=== PATIENT | female | born 1990 | race Caucasian/White ===

== ENCOUNTER 2018-01-08 11:03 | Emergency (ER) | payer MEDICAID, OTHER ==
[2018-01-08 11:57] VITALS: BP 91/72
--- NOTE | 2018-01-08 12:36 | UC ---
Throat Pain/Nasal Zbigniew HPI - HPI Summary HPI Summary: 27-year-old woman who comes in today with a complaint of runny nose sore throat cough and chest congestion. His been going on for several days. Patient is a smoker. This morning she had a hard time breathing and she coughs up a lot of green phlegm. She still feels her chest is congested. She also reports intermittent right arm numbness and weakness. It almost always occurs when she first wakes up. The right arm all feel normal when she gets up and moves around the starts to hurt and then gradually returns to normal. She has pain all away up into the right neck. She's had prior problems with the muscles in her right upper posterior chest. No known trauma. The paresthesias started about 4 weeks ago which coincides when she started new job where she is lifting a lot of heavy material. The numbness and weakness is transient she has no numbness or weakness now. - History of Current Complaint Chief Complaint: UCGeneralIllness Stated Complaint: COUGH,CONGESTION,ARM NUMBNESS (AT NIGHT) Time Seen by Provider: 01/08/18 12:01 Hx Last Menstrual Period: 02/11/12 Pain Intensity: 7 - Allergies/Home Medications Allergies/Adverse Reactions: Allergies Allergy/AdvReac Type Severity Reaction Status Date / Time Penicillins Allergy Unknown Verified 01/08/18 11:56 Reaction Details PMH/Surg Hx/FS Hx/Imm Hx - Surgical History Surgical History: None - Family History Known Family History: Negative: Hypertension, Diabetes - Social History Alcohol Use: Occasionally Substance Use Type: None Smoking Status (MU): Heavy Every Day Tobacco Smoker Type: Cigarettes Amount Used/How Often: 1/2 PPD Review of Systems Constitutional: Negative Skin: Negative Eyes: Negative ENT: Sore Throat, Nasal Discharge, Sinus Congestion Respiratory: Shortness Of Breath, Cough Cardiovascular: Negative Gastrointestinal: Negative Motor: Other - See history present illness Neurovascular: Other - See history present illness see history of present illness Musculoskeletal: Other: Neurological: Other - See history present illness Psychological: Negative Is Patient Immunocompromised?: No All Other Systems Reviewed And Are Negative: Yes Physical Exam Triage Information Reviewed: Yes Appearance: Well-Appearing, No Pain Distress, Well-Nourished Vital Signs: Initial Vital Signs Temp 98.8 F 01/08/18 11:52 Pulse 88 01/08/18 11:52 Resp 18 01/08/18 11:52 BP 91/72 01/08/18 11:52 Pulse Ox 99 01/08/18 11:52 Vital Signs Reviewed: Yes Eye Exam: Normal Eyes: Positive: Conjunctiva Clear ENT: Positive: Pharyngeal erythema, Nasal congestion, Nasal drainage, TMs normal Neck exam: Normal Neck: Positive: Supple, Nontender, Enlarged Nodes @ - ANTERIOR Respiratory: Positive: Lungs clear, Normal breath sounds, No respiratory distress Cardiovascular Exam: Normal Cardiovascular: Positive: RRR Musculoskeletal Exam: Normal Musculoskeletal: Positive: Strength Intact, ROM Intact, No Edema Neurological Exam: Normal Neurological: Positive: Alert Psychological Exam: Normal Psychological: Positive: Normal Response To Family, Age Appropriate Behavior Skin Exam: Normal Throat Pain/Nasal Course/Dx - Course Course Of Treatment: DISCUSSED VIRAL VERSES BACTERIAL INFECTION AND THE ROLE OF ANTIBIOTICS. THE PATIENT WISHES TO BE ON ANTIBIOTICS AT THIS TIME. Patient is asymptomatic with her RT arm now. We discussed imaging of the C-spine to help determine whether or not there is any areas of stenosis causing the paresthesia. We also discussed the brachial plexus as another possible area of stenosis. At this time the patient declined getting a CT scan and would prefer to follow up with her primary care doctor about the intermittent paresthesia of her right arm. - Differential Dx/Diagnosis Provider Diagnoses: BRONCHITIS. INTERMITTENT RIGHT ARM PARESTHESIA Discharge - Sign-Out/Discharge Documenting (check all that apply): Patient Departure All imaging exams completed and their final reports reviewed: No Studies - Discharge Plan Condition: Stable Disposition: HOME Prescriptions: Azithromycin TAB* [Zithromax TAB (Z-CAMERON) 250 mg #6 tabs] 2 tab PO .TODAY, THEN 1 DAILY #1 cameron Patient Education Materials: Acute Bronchitis (ED), Paresthesia (ED) [place]: [facility] [place] [facility] [place]] Additional Instructions: FOLLOW UP WITH YOUR DOCTOR FOR YOUR RIGHT ARM WEAKNESS/NUMBNESS. GET RECHECKED FOR ANY WORSENING OF YOUR CONDITION OR QUESTIONS OR CONCERNS. - Billing Disposition and Condition Condition: STABLE Disposition: Home
== END 2018-01-08 12:53 | disposition home or self-care (01) ==
LOC: UCCORT 11:03
DX: J40 Bronchitis, not specified as acute or chronic (principal); R20.2 Paresthesia of skin; F17.210 Nicotine dependence, cigarettes, uncomplicated; Z88.0 Allergy status to penicillin
CPT/HCPCS: 99212; G0463

== ENCOUNTER 2019-06-14 12:04 | Emergency (ER) | payer OTHER ==
[2019-06-14 13:10] VITALS: BP 99/53
--- NOTE | 2019-06-14 13:15 | UC ---
FLU HPI - HPI Summary HPI Summary: 29-year-old female presents with 2 day history of fatigue, nasal congestion, hoarse voice, and nonproductive cough. Denies fever, chills, ear pain, sore throat, chest pain, shortness of breath, abdominal pain, nausea, vomiting, or diarrhea. - History of Current Complaint Chief Complaint: UCRespiratory Stated Complaint: COUGH, CONGESTION Time Seen by Provider: 06/14/19 13:06 Hx Obtained From: Patient Hx Last Menstrual Period: 05/28/19 Pain Intensity: 0 - Allergy/Home Medications Allergies/Adverse Reactions: Allergies Allergy/AdvReac Type Severity Reaction Status Date / Time Penicillins Allergy Unknown Verified 06/14/19 13:05 Reaction Details Home Medications: Home Medications Benzonatate CAP* [Tessalon 100 MG CAP*] 100 mg PO TID PRN #21 cap 06/14/19 [Rx] PMH/Surg Hx/FS Hx/Imm Hx Previously Healthy: Yes - Denies significant PMH - Surgical History Surgical History: Yes Surgery Procedure, Year, and Place: tubal ligation - Family History Known Family History: Negative: Hypertension, Diabetes - Social History Occupation: Employed Full-time Lives: Alone Alcohol Use: Occasionally Substance Use Type: None Smoking Status (MU): Heavy Every Day Tobacco Smoker Type: Cigarettes Amount Used/How Often: 1/2 PPD Review of Systems All Other Systems Reviewed And Are Negative: Yes Constitutional: Negative: Fever, Chills Eyes: Negative: Drainage, Eye Redness ENT: Positive: Nasal Discharge, Sinus Congestion. Negative: Sore Throat, Ear Ache, Sinus Pain/Tenderness Respiratory: Positive: Cough. Negative: Shortness Of Breath Cardiovascular: Negative: Chest Pain Gastrointestinal: Negative: Abdominal Pain, Vomiting, Diarrhea, Nausea Genitourinary: Positive: Negative Musculoskeletal: Positive: Negative Neurological/Mental Status: Positive: Negative Is Patient Immunocompromised?: No Physical Exam - Summary Physical Exam Summary: GENERAL APPEARANCE: Well developed, well nourished, alert and cooperative, and appears to be in no acute distress. EYES: Conjunctiva clear. No drainage. EARS: External auditory canals and tympanic membranes clear, hearing grossly intact. NOSE: Mild-moderate nasal congestion. No nasal discharge. THROAT: Pharyngeal cobblestoning. No tonsilar inflammation, swelling, exudate, or lesions. Uvula midline. NECK: Neck supple, non-tender without lymphadenopathy. CARDIAC: Normal S1 and S2. No S3, S4 or murmurs. Rhythm is regular. There is no peripheral edema, cyanosis or pallor. Extremities are warm and well perfused. Capillary refill is less than 2 seconds. Peripheral pulses intact. LUNGS: Clear to auscultation without rales, rhonchi, wheezing or diminished breath sounds. Dry, non-productive cough. ABDOMEN: Positive bowel sounds. Soft, nondistended, nontender. No guarding or rebound. No masses or hepatosplenomegally. MUSKULOSKELETAL: ROM intact to all extremities. No joint erythema or tenderness. Normal muscular development. Normal gait. SKIN: Skin normal color, texture and turgor with no lesions or eruptions. Triage Information Reviewed: Yes Vital Signs: Initial Vital Signs Temp 97.7 F 06/14/19 13:05 Pulse 65 06/14/19 13:05 Resp 16 06/14/19 13:05 BP 99/53 06/14/19 13:05 Pulse Ox 99 06/14/19 13:05 Vital Signs Reviewed: Yes Flu Course/Dx - Course Course Of Treatment: 29-year-old female presents with 2 day history of fatigue, nasal congestion, hoarse voice, and nonproductive cough. Denies fever, chills, ear pain, sore throat, chest pain, shortness of breath, abdominal pain, nausea, vomiting, or diarrhea. Afebrile. Vital signs stable. Patient had mild to moderate nasal congestion, pharyngeal cobblestoning without tonsillar swelling or exudate, no cervical lymphadenopathy, clear bilateral breath sounds, dry nonproductive cough , and otherwise unremarkable exam. Rapid flu test was negative. Discussed with patient that her symptoms are likely from a viral upper respiratory infection and am recommending symptomatic treatment including Tessalon Perles 1 capsule every 8 hours as needed for cough. She is to return here or follow up with primary care in 5-7 days if symptoms are not improving. Anticipatory guidance and warning symptoms were reviewed with the patient. Verbalizes understanding and agrees with plan of care. - Differential Dx/Diagnosis Differential Diagnosis/HQI/PQRI: Bronchitis, Influenza, Pneumonia, Upper Respiratory Infection Provider Diagnosis: Viral URI Discharge ED - Sign-Out/Discharge Documenting (check all that apply): Patient Departure All imaging exams completed and their final reports reviewed: No Studies - Discharge Plan Condition: Stable Disposition: HOME Prescriptions: Benzonatate CAP* [Tessalon 100 MG CAP*] 100 mg PO TID PRN #21 cap PRN Reason: Cough Patient Education Materials: Upper Respiratory Infection (ED) Forms: *Work Release Referrals: No Primary Care Phys,NOPCP [Primary Care Provider] - [facility] – [place] [facility] [Outside] Additional Instructions: The rapid flu test performed in the clinic today was negative. Your history and exam are consistent with a viral upper respiratory infection. Viral infections do not respond to antibiotics and are limited to the treatment of symptoms. Viral infections typically run their course in 7-10 days. Drink plenty of fluids to avoid dehydration especially if you are running any fever. Use a saline rinse kit such as Neti Pot or NeilMed at least twice a day to help thin secretions and promote drainage of the sinuses. Use fluticasone (Flonase) nasal spray 2 sprays each nostril once daily. Take an over the counter decongestant such as Sudafed according to directions as needed for congestion. Take over the counter acetaminophen (Tylenol) or ibuprofen (Advil, Motrin) according to directions as needed for pain or fever. Take Tessalon Perles 1 cap every 8 hours as needed for cough. Return here or follow up with primary care in 5-7 days if symptoms persist. I have provided you with the contact information for the [facility] physician referral service if you need assistance with establishing with a provider. Seek immediate medical attention in the emergency room if you have fever greater than 100.5 F despite taking acetaminophen or ibuprofen, have chest pain , difficulty breathing, are unable to swallow, or have any worsening of symptoms. - Billing Disposition and Condition Condition: STABLE Disposition: Home
[2019-06-14 13:32] LABS: Influenza A Molecular Negative (Negative); Influenza B Molecular Negative (Negative)
== END 2019-06-14 13:52 | disposition home or self-care (01) ==
LOC: UCCORT 12:04
DX: J06.9 Acute upper respiratory infection, unspecified (principal); F17.210 Nicotine dependence, cigarettes, uncomplicated; Z88.0 Allergy status to penicillin
CPT/HCPCS: 99212; G0463